=== PATIENT | male | born 1960 | race Caucasian/White ===

== ENCOUNTER 2021-12-13 16:03 | Inpatient (IN) ==
[2021-12-13 19:03] LABS: ABS Basophils 0.1 10^3/ul (0-0.2); ABS Lymphocytes 1.8 10^3/ul (1.0-4.8); ABS Monocytes 0.6 10^3/ul (0-0.8); ABS Neutrophils 6.2 10^3/ul (1.5-7.7); Eosinophil % 0.3 %; Hematocrit 46 % (42-52); Hemoglobin 15.3 g/dL (14.0-18.0); Lymphocyte % 20.6 %; Mean Corpuscular HGB Conc 33 g/dL (31-36); Mean Corpuscular Hemoglobin 30 pg (27-31); Mean Corpuscular Volume 89 fL (80-94); Mean Platelet Volume 7.6 fL (7.4-10.4); Platelet Count 245 10^3/uL (150-450); Red Blood Count 5.21 10^6 /uL (4.18-5.48); Red Cell Distribution Width 15 % (10-15); White Blood Count 8.6 10^3/uL (3.5-10.8)
[2021-12-13 19:33] LABS: ALT 36 U/L (7-52); AST 40 U/L (13-39); Acetaminophen < 15 mcg/mL; Albumin 4.4 g/dL (3.2-5.2); Albumin/Globulin Ratio 1.8 (1-3); Alcohol, S < 13 mg/dL (<13); Alkaline Phosphatase 79 U/L (35-149); Anion Gap 13 mmol/L (2-11); Blood Urea Nitrogen 20 mg/dL (6-24); CO2 Carbon Dioxide 23 mmol/L (22-32); Calcium 9.4 mg/dL (8.6-10.3); Chloride 101 mmol/L (101-111); Globulin 2.5 g/dL (2-4); Glucose 84 mg/dL (70-100); Potassium 3.9 mmol/L (3.5-5.0); Salicylate < 2.50 mg/dL (<30); Sodium 137 mmol/L (135-145); Total Protein 6.9 g/dL (6.4-8.9); eGFR CKD-EPI 69.1 (>60)
[2021-12-13 20:37] LABS: Urine Appearance Cloudy; Urine Bilirubin Negative (Negative); Urine Blood 1+ (Negative); Urine Color Amber; Urine Glucose Negative (Negative); Urine Ketones 1+ (Negative); Urine Nitrite Negative (Negative); Urine Protein 2+(100 mg/dL) (Negative); Urine Specific Gravity 1.028 (1.002-1.030); Urine Urobilinogen Positive (Negative)
[2021-12-13 20:51] LABS: Urine Bacteria Absent (Absent); Urine Red Blood Cell Trace(0-2/hpf) (Absent); Urine Squamous Epithelial Cell Present (Absent); Urine White Blood Cell Absent (Absent)
[2021-12-13 20:53] LABS: Urine Benzodiazepine Screen None Detected (None Detect); Urine Cannabinoids Screen None Detected (None Detect); Urine Opiates Screen None Detected (None Detect)
[2021-12-14] MEDS ORDERED: OLANZapine IM (NF) 10 MG VIAL IM ONE ×2 (03:21→03:26)
[2021-12-14] MEDS ORDERED: Al Hydrox/Mg Hydrox/Simet LIQ 30 ML UDC PO PRN (04:08)
[2021-12-14] MEDS ORDERED: Nicotine GUM 2MG FRUIT FLAVOR PO PRN (05:00)
[2021-12-14] MEDS: Vitamin THERAPEUTIC TAB PO SCH (08:20)
[2021-12-14] MEDS: Nicotine PATCH 14 MG/24 HR PATCH TRANSDERM SCH (08:20)
[2021-12-15] MEDS: Vitamin THERAPEUTIC TAB PO SCH ×2 (08:43→09:34)
[2021-12-15] MEDS: Nicotine PATCH 14 MG/24 HR PATCH TRANSDERM SCH (08:43)
[2021-12-16 07:19] LABS: HDL Cholesterol 30.9 mg/dL
[2021-12-16] MEDS: Vitamin THERAPEUTIC TAB PO SCH (07:30)
[2021-12-16] MEDS: Nicotine PATCH 14 MG/24 HR PATCH TRANSDERM SCH (07:32)
[2021-12-16 08:23] LABS: TSH Ultra Thyroid Stim Horm 0.8 mcIU/mL (0.34-5.60)
[2021-12-17] MEDS: Vitamin THERAPEUTIC TAB PO SCH (07:25)
[2021-12-17] MEDS: Nicotine PATCH 14 MG/24 HR PATCH TRANSDERM SCH (07:25)
[2021-12-17 14:28] LABS: Calcium 9.4 mg/dL (8.6-10.3); Potassium 4.6 mmol/L (3.5-5.0); eGFR CKD-EPI 84.1 (>60)
[2021-12-18] MEDS: Vitamin THERAPEUTIC TAB PO SCH (08:31)
[2021-12-18] MEDS: Nicotine PATCH 14 MG/24 HR PATCH TRANSDERM SCH (08:33)
[2021-12-19] MEDS: Nicotine PATCH 14 MG/24 HR PATCH TRANSDERM SCH (07:42)
[2021-12-19] MEDS: Vitamin THERAPEUTIC TAB PO SCH (08:24)
[2021-12-20] MEDS: Vitamin THERAPEUTIC TAB PO SCH (07:33)
[2021-12-20] MEDS: Nicotine PATCH 14 MG/24 HR PATCH TRANSDERM SCH (07:33)
[2021-12-21] MEDS: Vitamin THERAPEUTIC TAB PO SCH (08:22)
[2021-12-21] MEDS: Nicotine PATCH 14 MG/24 HR PATCH TRANSDERM SCH (08:23)
[2021-12-21 09:20] VITALS: BP 134/91
== END 2021-12-21 15:25 | disposition home or self-care (01) | DRG 885 ==
LOC: ED 16:03 → BSU 22:00
PROVIDERS: ADMIT Psychiatry & Neurology Psychiatry; ATTEND Student in an Organized Health Care Education/Training Program

== ENCOUNTER 2023-06-16 17:48 | Inpatient (IN) ==
[2023-06-16] MEDS ORDERED: Lactated Ringers 1000 ml BAG 1,000 ML IV ONE ×2 (19:16→23:17)
[2023-06-16 20:41] LABS: ABS Basophils 0.1 10^3/uL (0.0-0.1); ABS Lymphocytes 0.8 10^3/uL (1.0-4.8); ABS Monocytes 0.4 10^3/uL (0.0-1.1); ABS Neutrophils 7.3 10^3/uL (1.5-7.6); ABS Nucleated RBC 0.02 10^3/ul; Eosinophil % 0.1 %; Hematocrit 43.5 % (38-53); Hemoglobin 15.4 g/dL (13.2-16.3); Lymphocyte % 9.6 %; Mean Corpuscular Hemoglobin 31.9 pg (27-33); Mean Corpuscular Hgb Conc 35.3 g/dL (31-36); Mean Corpuscular Volume 90.3 fL (80-97); Mean Platelet Volume 7.5 fL (7.5-11.2); Nucleated Red Blood Cells % 0.3 %/100WBC (0.0-0.8); Platelet Count 176 10^3/uL (150-450); Red Blood Count 4.81 10^6/uL (4.06-5.63); Red Cell Distribution Width 14.1 % (12-17); White Blood Count 8.7 10^3/uL (3.6-10.2)
[2023-06-16 21:00] LABS: ALT 28 U/L (7-52); AST 40 U/L (13-39); Albumin 3.7 g/dL (3.2-5.2); Albumin/Globulin Ratio 1.4 (1-3); Alkaline Phosphatase 83 U/L (35-149); Anion Gap 13 mmol/L (2-16); Blood Urea Nitrogen 21 mg/dL (6-24); CO2 Carbon Dioxide 22 mmol/L (22-32); Calcium 9.3 mg/dL (8.6-10.3); Chloride 100 mmol/L (101-111); Creatine Kinase 993 U/L (10-223); Creatinine, Serum 1.32 mg/dL (0.67-1.17); Globulin 2.6 g/dL (2-4); Glucose 115 mg/dL (70-100); Potassium 4.5 mmol/L (3.5-5.0); Sodium 135 mmol/L (135-145); Total Bilirubin 1.1 mg/dL (0.2-1.0); Total Protein 6.3 g/dL (6.4-8.9); eGFR CKD-EPI 60.6 (>60)
[2023-06-16 21:39] LABS: Acetaminophen < 15 mcg/mL; Alcohol, S < 13 mg/dL (<13); Salicylate < 2.50 mg/dL (<30)
[2023-06-16 21:53] LABS: TSH Ultra Thyroid Stim Horm 1.97 mcIU/mL (0.34-5.60)
[2023-06-17 01:28] LABS: Urine Appearance Clear; Urine Bilirubin Negative (Negative); Urine Blood Negative (Negative); Urine Color Amber; Urine Glucose Negative (Negative); Urine Ketones Trace (Negative); Urine Nitrite Negative (Negative); Urine Protein Negative (Negative); Urine Specific Gravity 1.017 (1.002-1.030); Urine Urobilinogen Negative (Negative)
[2023-06-17 01:43] LABS: Urine Benzodiazepine Screen None Detected (None Detect); Urine Cannabinoids Screen None Detected (None Detect); Urine Opiates Screen None Detected (None Detect)
[2023-06-17] MEDS: Vitamin THERAPEUTIC TAB PO SCH (08:48)
[2023-06-17] MEDS ORDERED: OLANZapine 5 mg TAB *ODT PO PRN (10:39)
[2023-06-17] MEDS ORDERED: Lactated Ringers 1000 ml BAG 1,000 ML IV ONE (12:12)
[2023-06-17] MEDS: OLANZapine 10 mg TAB*ODT PO SCH (20:23)
[2023-06-18] MEDS ORDERED: oxyCODONE/Acetamin 5/325 mg TAB PO PRN (07:10)
[2023-06-18] MEDS: Vitamin THERAPEUTIC TAB PO SCH (07:21)
[2023-06-18 08:07] LABS: Calcium 8.6 mg/dL (8.6-10.3); Creatinine, Serum 1.2 mg/dL (0.67-1.17); HDL Cholesterol 29.7 mg/dL; Potassium 3.6 mmol/L (3.5-5.0)
[2023-06-18] MEDS: OLANZapine 10 mg TAB*ODT PO SCH (20:03)
[2023-06-19] MEDS: Vitamin THERAPEUTIC TAB PO SCH (08:06)
[2023-06-19] MEDS: OLANZapine 10 mg TAB*ODT PO SCH (20:03)
[2023-06-20] MEDS: Vitamin THERAPEUTIC TAB PO SCH (08:09)
[2023-06-20] MEDS: Al Hydrox/Mg Hydrox/Simet LIQ 30 ML UDC PO PRN (17:42)
[2023-06-20] MEDS: OLANZapine 10 mg TAB*ODT PO SCH (21:45)
[2023-06-20] MEDS ORDERED: Calcium Carb (TUMS) 500 mg CHEW TAB PO ONE (22:00)
[2023-06-21] MEDS: Vitamin THERAPEUTIC TAB PO SCH (08:13)
[2023-06-21] MEDS: Al Hydrox/Mg Hydrox/Simet LIQ 30 ML UDC PO PRN ×2 (11:27→19:29)
[2023-06-21] MEDS: OLANZapine 10 mg TAB*ODT PO SCH (20:45)
[2023-06-22 08:24] VITALS: BP 123/73
[2023-06-22] MEDS: Vitamin THERAPEUTIC TAB PO SCH (08:29)
[2023-06-22] MEDS: Al Hydrox/Mg Hydrox/Simet LIQ 30 ML UDC PO PRN (08:32)
== END 2023-06-22 18:30 | disposition home or self-care (01) | DRG 885 ==
LOC: ED 17:48 → BSU 06-17 00:05
PROVIDERS: ADMIT Psychiatry & Neurology Psychiatry; ATTEND Student in an Organized Health Care Education/Training Program